=== PATIENT | female | born 1970 | race American Indian/Alaskan Native ===

== ENCOUNTER 2017-01-12 07:44 | Day surgery (SDC) | payer OTHER ==
[2017-01-11 11:25] LABS: Basophils % (Auto) 0.9 % (0.0-1.8); Eosinophils % (Auto) 0.5 % (0.0-4.3); Hematocrit 29.7 % (30.3-42.9); Hemoglobin 9.4 gm/dl (10.1-14.3); Mean Corpuscular HGB Conc 32 % (30-34); Mean Corpuscular Volume 77 fl (79-97); Platelet Count 346 K/mm3 (140-440); Red Blood Count 3.84 M/mm3 (3.65-5.03); White Blood Count 7.2 K/mm3 (4.5-11.0)
[2017-01-11 11:29] LABS: Mean Corpuscular Hemoglobin 25 pg (28-32); Red Cell Distribution Width 21.5 % (13.2-15.2)
[2017-01-11 11:38] LABS: Anion Gap 19 mmol/L; BUN/Creatinine Ratio 17.14; Blood Urea Nitrogen 12 mg/dL (7-17); Calcium 8.6 mg/dL (8.4-10.2); Carbon Dioxide 20 mmol/L (22-30); Chloride 103.2 mmol/L (98-107); Glucose 120 mg/dL (65-100); Potassium 3.9 mmol/L (3.6-5.0); Sodium 138 mmol/L (137-145)
--- NOTE | 2017-01-11 11:49 | Anesthesia Consultation ---
Anesthesia Consult and Med Hx Date of service: 01/11/17 - Airway Anesthetic Teeth Evaluation: Good ROM Head & Neck: Adequate Mental/Hyoid Distance: Adequate Mallampati Class: Class I Intubation Access Assessment: Probably Good - Pulmonary Exam CTA: Yes - Cardiac Exam Cardiac Exam: RRR - Pre-Operative Health Status ASA Pre-Surgery Classification: ASA3 Proposed Anesthetic Plan: General - Pulmonary Hx Respiratory Symptoms: Yes (chronic bronchitis, started after 1st preg.) - Cardiovascular System Hx Hypertension: Yes (x 4-5 yrs) Hx Cardia Arrhythmia: Yes - Central Nervous System Hx Psychiatric Problems: No - Endocrine Hx Insulin Dependent Diabetes: Yes - Hematic Hx Anemia: Yes - Other Systems Hx Alcohol Use: Yes (2x's a week) Hx Cancer: No Hx Obesity: Yes
[~2017-01-12 07:44] MED LIST: DILAUDID IV PRN
[2017-01-12] MEDS ORDERED: PEPCID PO NR (08:00)
[2017-01-12] MEDS ORDERED: NACL 0.9% 1000 ML 1,000 ML IV SCH (08:00)
[2017-01-12] MEDS ORDERED: VERSED IV NR (08:00)
[2017-01-12] MEDS ORDERED: NACL BACTERIOSTATIC INFILTRATI ONE (08:07)
[2017-01-12] MEDS ORDERED: ZOFRAN IV PRN (08:30)
--- NOTE | 2017-01-12 08:34 | Short Stay Summary ---
Short Stay Documentation Date of service: 01/12/17 Narrative H&P: 46y/o with dysfunctional uterine bleeding and cramping. The patient attempted medical management without much improvement in her symptoms. Endometrial biopsy had benign findings. The patient has elected for surgical management. - History Principal diagnosis: dysfunctional uterine bleeding H&P: obtained from office Past Medical History: diabetes, hypertension, other (bronchitis) Past Surgical History: , Other (D&C) Social history: single - Allergies and Medications Current Medications: Allergies No Known Allergies Allergy (Verified 01/12/17 07:36) Home Medications Medication Instructions Recorded Confirmed Last Taken Type ALBUTEROL Inhaler [Proair] 2 puff IH QID PRN 01/07/17 01/12/17 8 Months Ago History Atenolol [Tenormin] 50 mg PO DAILY 01/07/17 01/12/17 1 Week Ago History Losartan/Hydrochlorothiazide 1 each PO DAILY 01/07/17 01/07/17 01/11/17 History [Losartan-Hctz 50-12.5 mg Tab] Meloxicam 15 mg PO QDAY 01/07/17 01/07/17 01/11/17 History metFORMIN [Glucophage] 500 mg PO BID 01/07/17 01/07/17 01/11/17 History Active Medications Famotidine (Pepcid) 20 mg PO PREOP NR Stop: 01/12/17 15:00 Last Admin: 01/12/17 08:25 Dose: 20 mg Hydromorphone HCl (Dilaudid) 0.5 mg IV Q10MIN PRN PRN Reason: Pain , Severe (7-10) Stop: 01/12/17 15:00 Sodium Chloride (Nacl 0.9% 1000 Ml) 1,000 mls @ 75 mls/hr IV DIRECT MORGAN Last Admin: 01/12/17 08:24 Dose: 75 mls/hr Midazolam HCl (Versed) 2 mg IV PREOP NR Stop: 01/12/17 23:59 Last Admin: 01/12/17 08:30 Dose: 2 mg - Physical exam General appearance: no acute distress Integumentary: no rash HEENT: Atraumatic Lungs: Clear to auscultation Breasts: deferred Heart: Regular rate Gastrointestinal: normal Female Genitourinary: deferred - Brief post op/procedure progress note Date of procedure: 01/12/17 Pre-op diagnosis: dysfunctional uterine bleeding Post-op diagnosis: same Procedure: Hysteroscopy Endometrial ablation via NovaSure Anesthesia: DELONA Surgeon: CARMEN MARTEL Estimated blood loss: minimal Pathology: none - Hospital course Hospital course: The patient was admitted the day of surgery and underwent a hysteroscopy and endometrial ablation. Please see operative note for details of surgery. Postoperative course was uneventful. - Disposition Condition at discharge: Good Disposition: [id number] TO HOME OR SELFCARE Short Stay Discharge Plan Activity: other (pelvic rest for 2 weeks) Diet: regular Additional Instructions: Patient may follow up with Dr. Hinkle and 4 weeks Prescriptions: Ibuprofen [Motrin] 800 mg PO Q8HR PRN #60 tablet PRN Reason: Pain oxyCODONE /ACETAMINOPHEN [Percocet 5/325] 1 tab PO Q6HR PRN #30 tablet PRN Reason: Pain
[2017-01-12] MEDS ORDERED: DIPRIVAN 10 MG/ML IV ONE (09:53)
[2017-01-12] MEDS ORDERED: DILAUDID ONE (09:54)
[2017-01-12] MEDS ORDERED: XYLOCAINE MPF 2% ONE (09:56)
--- NOTE | 2017-01-12 10:02 | Anesthesia Day of Surgery ---
Anesthesia Day of Surgery - Day of Surgery Patient Examined: Yes Patient H&P Reviewed: Yes Patient is NPO: Yes
[2017-01-12] MEDS ORDERED: ZOFRAN ONE (11:34)
--- NOTE | 2017-01-12 11:50 | Operative Report ---
Operative Report Operative Report: Date of procedure: 01/12/2017 Pre-operative diagnosis: Dysfunctional uterine bleeding Post-operative diagnosis: Same as above Procedure name(s): Hysteroscopy; endometrial ablation via NovaSure Surgeon: Indy Brady M.D. 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 The patient failed medical management and elected to undergo surgical management of her abnormal bleeding. Procedure The patient was taken to the operating room and given general tracheal anesthesia without complication. The patient was prepped and draped in a normal sterile fashion. A bivalve speculum was placed in the patient's vagina single-tooth tenaculums placed on the anterior lip of the cervix. The cervical os was dilated with graduated dilators. A uterine sound was inserted. The hysteroscope was then placed. Insufflation of the uterine cavity was performed with normal saline. 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 The hysteroscope was then removed. The NovaSure device was then inserted. The endometrial length was 6.0 cm And the uterine width was 4.3 cm. The device was engaged and it passed the surveillance of the uterine cavity. The NovaSure device was then deployed with a energy of 142 W that lasted for 1 minute 3 seconds. The NovaSure device was then removed. The hysteroscope was again reinserted. There was evidence of charring of the endometrial surface. The remainder of the vaginal instruments were then removed atraumatically. The patient was then successfully extubated taken to the recovery room. All sponge laps and needle counts were correct 2.
[2017-01-12] MEDS ORDERED: PERCOCET 5/325 PO PRN (12:14)
[2017-01-12 12:50] VITALS: BP 140/75
--- NOTE | 2017-01-12 14:48 | Post Anesthesia Evaluation ---
- Post Anesthesia Evaluation Patient Participated: Yes Airway Patent: Yes Stable Respiratory Function: Yes Nausea/Vomiting: No Temp > 96.8F: Yes Pain Manageable: Yes Adequeate Hydration: Yes Anesthesia Complications: No Block Receding Appropriately: Not Applicable Patient on Ventilator: No
== END 2017-01-12 13:12 | disposition home or self-care (01) ==
LOC: OR 07:44
PROVIDERS: ATTEND Obstetrics & Gynecology
DX: N93.8 Other specified abnormal uterine and vaginal bleeding (principal); N85.6 Intrauterine synechiae; I10 Essential (primary) hypertension; E11.9 Type 2 diabetes mellitus without complications; D64.9 Anemia, unspecified; E66.01 Morbid (severe) obesity due to excess calories; Z68.42 Body mass index [BMI] 45.0-49.9, adult; Z72.89 Other problems related to lifestyle; Z98.890 Other specified postprocedural states; Z79.899 Other long term (current) drug therapy; Z79.84 Long term (current) use of oral hypoglycemic drugs
CPT/HCPCS: 36415; 58563; 80048; 82962; 84703; 85025; J1170; J2250; J2405; J2704; J7030